=== PATIENT | female | born 1980 | race Caucasian/White ===

== ENCOUNTER 2021-05-12 14:33 | Observation (INO) ==
--- NOTE | 2021-05-12 15:42 | Emergency Department Note ---
History of Present Illness General Chief complaint: Abdominal Pain Stated complaint: POSSIBLE APPENDICITIS Time Seen by Provider: 05/12/21 15:34 History of Present Illness Maximum Pain Intensity: 6 This is a 41-year-old female that presents to the emergency department via private vehicle with complaints of "right lower quadrant abdominal pain". The patient states that this past Sunday evening she began with right lower quadrant abdominal pain. No known trauma or injury. No associated fevers, chills, nausea, vomiting, chest pain, shortness of breath or dysuria. Patient points to the right lower quadrant as a distinct spot of pain. She states that pain currently is a 6-7/10. She does note a history of partial hysterectomy and no longer has a uterus or fallopian tubes. The bilateral ovaries are present. Patient also notes a history of hemorrhoidectomy. Patient notes the appendix is still present. She notes a history of eczema and anxiety. No allergies. Patient perspective declines pain medication at this time. Patient states that if she stays in one spot the pain is slightly better. Home Medications Medication Instructions Recorded Confirmed Type escitalopram oxalate 20 mg tablet 20 mg PO QAM 03/13/19 05/12/21 History (Lexapro) Allergies Allergy/AdvReac Type Severity Reaction Status Date / Time allopurinol AdvReac Severe Nausea Verified 05/12/21 17:20 Past Med/Surg History Medical History Anxiety Chronic headache Dyshidrotic eczema B/L hands Endometriosis Kidney stones no surgery Medical marijuana use Obesity BMI 36.6 Surgical History History of section History of colonoscopy History of dental surgery dental implant History of laparoscopy endometriosis History of partial hysterectomy S/P hemorrhoidectomy Family History Mother Hypertension Other No family history of adverse response to anesthesia Social History Smoking Status: Never smoker Second Hand Exposure: No; Do You Dip or Chew Tobacco: No; Tobacco Cessation Education Requested by Patient: No Hx Alcohol Use: Yes Alcohol type: beer, wine and hard liquor Hx Substance Use: No Preferred Language: Lao Communication Ability: Effective Environmental Advisor Required: No Beliefs That Will Affect Care: None marital status: Single Current Living Situation: Family Current Living Situation Comment: Lives with Son and Parents. Other Information That Helps Us Care for You: No Feels Safe at Home: Yes Safety Concerns: Feels Safe At This Time Assistive Devices: None Review of Systems A total of 10 systems reviewed and were otherwise negative Physical Exam Vital Signs Vital Signs - 24 hr 05/12/21 14:46 05/12/21 16:30 05/12/21 17:06 Temperature 36.9 C Temperature Source Oral Pulse Rate 98 H Pulse Rate [Finger] 88 88 Pulse Rhythm [Finger] Regular Regular Pulse Strength [Finger] Respiratory Rate 18 18 18 Respiratory Effort / Characteristics Non-Labored Spontaneous Non-Labored Spontaneous Respiratory Depth Normal Normal Respiratory Pattern Regular Regular Blood Pressure 206/127 H Blood Pressure [Right Arm] 184/90 H 151/111 H Blood Pressure Mean 153 Blood Pressure Mean [Right Arm] 121 124 Blood Pressure Position [Right Arm] Sitting Sitting Pulse Oximetry 96 98 98 Oxygen Delivery Method Room Air Room Air Room Air Sepsis Recent Fever Within 48 Hours No Sepsis New/Unexplained Change in Mental Status No Sepsis Action Taken by Nursing No Action Required 05/12/21 18:36 05/12/21 19:54 Temperature Temperature Source Pulse Rate 88 Pulse Rate [Finger] 81 Pulse Rhythm [Finger] Regular Pulse Strength [Finger] Normal Respiratory Rate 18 18 Respiratory Effort / Characteristics Non-Labored Respiratory Depth Normal Respiratory Pattern Regular Blood Pressure Blood Pressure [Right Arm] 168/105 H Blood Pressure Mean Blood Pressure Mean [Right Arm] 126 Blood Pressure Position [Right Arm] Pulse Oximetry 95 98 Oxygen Delivery Method Room Air Room Air Sepsis Recent Fever Within 48 Hours Sepsis New/Unexplained Change in Mental Status Sepsis Action Taken by Nursing VITAL SIGNS - Vital signs and nursing notes were reviewed. Stable and afebrile. GENERAL -41-year-old female appearing her stated age who is in no acute distress . Communicates well with provider and answers questions appropriately. SKIN - Without rashes. No meningeal or petechial rash. HEAD - NC/AT. EYES - Sclera anicteric. LUNGS - Chest wall symmetric without accessory muscle use, intercostals retractions, or central cyanosis. Normal vesicular breath sounds CTA B/L. No wheezes, rales, or rhonchi appreciated. CARDIAC - RRR with S1/S2. No murmur, rubs, or gallops appreciated. ABDOMEN - Abdominal contour normal without pulsations or visible masses. BS normoactive all four quadrants. There is right lower quadrant abdominal tenderness to palpation. No palpable masses, hepatosplenomegaly, or ascites noted. EXTREMITIES - No clubbing or peripheral cyanosis. +5/5 strength noted in UE/LE bilaterally. NEUROLOGIC - Cranial nerves II through XII grossly intact. PSYCH - A&O, and cooperates fully with examiner. Pt is very pleasant and interacts well with examiner. Course Administered Medications Lactated Ringer's (Lr) 1,000 mls @ 50 mls/hr IV .Q20H ANKUR Stop: 06/11/21 22:22 Last Admin: 05/12/21 22:23 Dose: 50 mls/hr Documented by: [id number] Morphine Sulfate (Morphine Sulfate 2 Mg/Ml Carp) 2 mg IV Q3H PRN PRN Reason: Pain (1,2,3,4,5) & Pre PT Stop: 05/26/21 22:22 Last Admin: 05/12/21 23:06 Dose: 2 mg Documented by: [id number] Discontinued Medications Bupivacaine HCl (Bupivacaine 0.5 % 5 Mg/1 Ml Mpf 30ml Vial) Confirm Administered Dose 30 ml .ROUTE .STK-MED ONE Stop: 05/12/21 19:53 Last Admin: 05/12/21 21:01 Dose: 15 ml Documented by: [id number] Epinephrine HCl (Epinephrine Inj 1 Mg/Ml Amp) Confirm Administered Dose 1 mg .ROUTE .STK-MED ONE Stop: 05/12/21 19:53 Last Admin: 05/12/21 21:02 Dose: 0.15 mg Documented by: [id number] Fentanyl Citrate (Fentanyl Citrate 100 Mcg/2 Ml Vial) 50 mcg IV Q5M PRN PRN Reason: PACU Use Only-Pain Stop: 05/13/21 04:38 Last Admin: 05/12/21 21:40 Dose: 50 mcg Documented by: [id number] Piperacillin Sod/Tazobactam Sod (Zosyn) 4.5 gm in 120 mls @ 240 mls/hr IV NOW ONE Stop: 05/12/21 19:20 Last Infusion: 05/12/21 19:51 Dose: 0 mls/hr Documented by: [id number] Admin: 05/12/21 19:06 Dose: 240 mls/hr Documented by: [id number] Ioversol (Optiray 320 100ml) 95 ml IV ONCE ONE Stop: 05/12/21 17:57 Last Admin: 05/12/21 17:56 Dose: 95 ml Documented by: [id number] Labetalol HCl (Labetalol Hcl Iv 5 Mg/Ml 20ml) 10 mg IV NOW STA Stop: 05/12/21 21:33 Last Admin: 05/12/21 21:43 Dose: 10 mg Documented by: [id number] Cosigned by: [id number] Medical Decision Making Laboratory Data Result diagrams: 05/12/21 16:29 05/12/21 16:29 Lab Results 05/12/21 05/12/21 05/12/21 Range/Units 16:29 16:29 16:29 WBC 9.28 (4.8-10.8) K/uL RBC 5.12 (4.2-5.4) M/uL Hgb 15.2 (12.0-16.0) g/dL Hct 45.1 (37-47) % MCV 88.1 (80-100) fL MCH 29.7 (25-34) pg MCHC 33.7 (32-36) g/dL RDW Std Deviation 42.9 (36.4-46.3) fL RDW Coeff of Bibi 13.2 (11.5-14.5) % Plt Count 368 (130-400) K/uL MPV 9.1 (7.4-10.4) fL Immature Gran % (Auto) 0.2 % Neut % (Auto) 62.1 % Lymph % (Auto) 27.9 % Shelby % (Auto) 8.5 % Eos % (Auto) 1.1 % Baso % (Auto) 0.2 % Neut # (Auto) 5.76 (1.4-6.5) K/uL Lymph # (Auto) 2.59 (1.2-3.4) K/uL Shelby # (Auto) 0.79 H (0.11-0.59) K/uL Eos # (Auto) 0.10 (0-0.5) K/uL Baso # (Auto) 0.02 (0-0.2) K/uL Immature Gran # (Auto) 0.02 (0.00-0.02) K/uL Sodium 137 (136-145) mmol/L Potassium 3.4 L (3.5-5.1) mmol/L Chloride 104 (98-107) mmol/L Carbon Dioxide 28 (21-32) mmol/L Anion Gap 5.0 (3-11) BUN 13 (7-18) mg/dl Creatinine 0.82 (0.6-1.2) mg/dl Est Cr Clr Drug Dosing 99.1 ml/min Est GFR ( Amer) 103.0 ml/min Est GFR (Non-Af Amer) 88.9 ml/min BUN/Creatinine Ratio 15.5 (10-20) Glucose 104 H (70-99) mg/dl Calcium 9.5 (8.5-10.1) mg/dl Total Bilirubin 0.3 (0.2-1) mg/dl AST 9 L (15-37) U/L ALT 20 (12-78) U/L Alkaline Phosphatase 100 (45-117) U/L Total Protein 8.2 (6.4-8.2) gm/dl Albumin 3.6 (3.4-5.0) gm/dl Globulin 4.6 H (2.5-4.0) gm/dl Albumin/Globulin Ratio 0.8 L (0.9-2) Lipase 150 (73-393) U/L Urine Color Yellow Urine Appearance Clear (Clear) Urine pH 5.5 (4.5-7.5) Ur Specific Eland 1.028 (1.000-1.030) Urine Protein Negative (Negative) Urine Glucose (UA) Negative (Negative) Urine Ketones Negative (Negative) Urine Blood Trace H (Negative) Urine Nitrite Negative (Negative) Urine Bilirubin Negative (Negative) Urine Urobilinogen Negative (Negative) Ur Leukocyte Esterase Negative (Negative) Urine WBC (Auto) 1-5 (0-5) /hpf Urine RBC (Auto) 5-10 H (0-4) /hpf U Hyaline Cast (Auto) 5-10 H (0-5) /lpf U Epithel Cells (Auto) >30 H (0-5) /lpf Urine Bacteria (Auto) Negative (Negative) COVID-19 Eval Order SARS-CoV-2 (PCR) (Negative) 05/12/21 05/12/21 Range/Units 18:38 18:38 WBC (4.8-10.8) K/uL RBC (4.2-5.4) M/uL Hgb (12.0-16.0) g/dL Hct (37-47) % MCV (80-100) fL MCH (25-34) pg MCHC (32-36) g/dL RDW Std Deviation (36.4-46.3) fL RDW Coeff of Bibi (11.5-14.5) % Plt Count (130-400) K/uL MPV (7.4-10.4) fL Immature Gran % (Auto) % Neut % (Auto) % Lymph % (Auto) % Shelby % (Auto) % Eos % (Auto) % Baso % (Auto) % Neut # (Auto) (1.4-6.5) K/uL Lymph # (Auto) (1.2-3.4) K/uL Shelby # (Auto) (0.11-0.59) K/uL Eos # (Auto) (0-0.5) K/uL Baso # (Auto) (0-0.2) K/uL Immature Gran # (Auto) (0.00-0.02) K/uL Sodium (136-145) mmol/L Potassium (3.5-5.1) mmol/L Chloride (98-107) mmol/L Carbon Dioxide (21-32) mmol/L Anion Gap (3-11) BUN (7-18) mg/dl Creatinine (0.6-1.2) mg/dl Est Cr Clr Drug Dosing ml/min Est GFR ( Amer) ml/min Est GFR (Non-Af Amer) ml/min BUN/Creatinine Ratio (10-20) Glucose (70-99) mg/dl Calcium (8.5-10.1) mg/dl Total Bilirubin (0.2-1) mg/dl AST (15-37) U/L ALT (12-78) U/L Alkaline Phosphatase (45-117) U/L Total Protein (6.4-8.2) gm/dl Albumin (3.4-5.0) gm/dl Globulin (2.5-4.0) gm/dl Albumin/Globulin Ratio (0.9-2) Lipase (73-393) U/L Urine Color Urine Appearance (Clear) Urine pH (4.5-7.5) Ur Specific Eland (1.000-1.030) Urine Protein (Negative) Urine Glucose (UA) (Negative) Urine Ketones (Negative) Urine Blood (Negative) Urine Nitrite (Negative) Urine Bilirubin (Negative) Urine Urobilinogen (Negative) Ur Leukocyte Esterase (Negative) Urine WBC (Auto) (0-5) /hpf Urine RBC (Auto) (0-4) /hpf U Hyaline Cast (Auto) (0-5) /lpf U Epithel Cells (Auto) (0-5) /lpf Urine Bacteria (Auto) (Negative) COVID-19 Eval Order Covid19 at [facility] SARS-CoV-2 (PCR) NEGATIVE (Negative) Imaging Data Radiologist's Impression: Abdomen/Pelvis CT 05/12/21 15:[address] WITH IV CONTRAST CT DOSE: 903.27 mGy.cm HISTORY: Right lower quadrant abdominal pain. TECHNIQUE: Multiaxial CT images of the abdomen and pelvis were performed following the use of intravenous contrast. A dose lowering technique was uti lized adhering to the principles of ALARA. COMPARISON STUDY: Abdomen and pelvis CT 05/11/2021. FINDINGS: The lung bases are clear. No pneumoperitoneum. No pneumatosis. No fractures within the visualized osseous structures. Mild hepatic steatosis. The main portal vein is patent. The gallbladder, spleen, adrenal glands, and pancreas are unremarkable. A 1 cm hypodense lesion within the left kidney. This remains stable and likely represents a cyst. There are few punctate bilateral renal calculi. No ureteral calculi. No hydronephrosis. The bladder is unremarkable. Mild bilateral cortical renal scarring/thinning. No retroperitoneal lymphadenopathy. Normal caliber abdominal aorta. Prior hysterectomy. A 1.6 cm right ovarian cyst. Normal left ovary. A few colonic diverticula. No evidence for acute diverticulitis. No evidence for small bowel obstruction. Dilated and thick-walled appendix with periappendiceal fat stranding consistent with acute appendicitis. No perforation or abscess. The appendix measures up to 13 mm in diameter. IMPRESSION: 1. Acute appendicitis. 2. Bilateral nephrolithiasis. No ureteral stones. No hydronephrosis. 3. Colonic diverticulosis. 4. Hepatic steatosis. ACT 112: Negative or not required by law. Electronically signed by: Arnav Valero M.D. 05/12/2021 6:22 PM MDM Narrative Patient was seen and evaluated as above in room A12. Review was performed of nursing notes and vital signs. I did review pertinent previous visits and patient history. After obtaining a thorough history and physical examination the above work up was performed. I did review the patient's urology visit from earlier today. She was evaluate by Dr. Hanley. Patient does have history of kidney stones but notes that this does not feel similar. She is quite hy pertensive on arrival but notes that this may be secondary to the blood pressure cuff as often it does provide higher values depending on cuff size. She at this time notes some right lower quadrant abdominal pain. She respectfully declines pain medication. Clinically she appears well. Options of care were discussed with the patient. IV access was established. Labs were drawn. CT scan was obtained of the abdomen and pelvis. Results as above. Acute appendicitis noted. I discussed this with the on-call general surgeon, Dr. Rodgers. IV antibiotics recommended. IV Zosyn was ordered per d iscussion. He came to evaluate the patient. Please refer to further documentation regarding her stay. No leukocytosis or concerning anemia. Mild hypokalemia. Urinalysis negative. Covid negative. GCS: 15 In the evaluation and treatment of this patient the following differential diagnoses were entertained: uti, pyelonephritis, appendicitis, bowel obstruction, torsion, kidney stone, among others. Impression & Plan Acute appendicitis, Abdominal pain, acute, right lower quadrant Discharge Plan Visit Data Chief Complaint: Abdominal Pain Stated Complaint: POSSIBLE APPENDICITIS ED Provider: Catrachito Gamez ED Midlevel Provider: Christiano Vásquez Discharge Problem: Acute appendicitis, Abdominal pain, acute, right lower quadrant Patient Disposition: Still a Patient Condition: Good Discharge Instructions Interventions: ED Discharge Assessment Last Done: 05/12/21 19:54
[2021-05-12 16:42] LABS: Basophils # (auto) 0.02 K/uL (0-0.2); Basophils % (auto) 0.2 %; Eosinophils % (auto) 1.1 %; Hematocrit (blood only) 45.1 % (37-47); Hemoglobin 15.2 g/dL (12.0-16.0); Immature Granulocytes # (auto) 0.02 K/uL (0.00-0.02); Immature Granulocytes % (auto) 0.2 %; Lymphocytes # (auto) 2.59 K/uL (1.2-3.4); Lymphocytes % (auto) 27.9 %; Mean Corpuscular Hemoglobin 29.7 pg (25-34); Mean Corpuscular Hgb Conc 33.7 g/dL (32-36); Mean Corpuscular Volume 88.1 fL (80-100); Mean Platelet Volume 9.1 fL (7.4-10.4); Monocytes # (auto) 0.79 K/uL (0.11-0.59); Monocytes % (auto) 8.5 %; Neutrophils # (auto) 5.76 K/uL (1.4-6.5); Neutrophils % (auto) 62.1 %; Platelet Count 368 K/uL (130-400); RDW Coefficient of Variation 13.2 % (11.5-14.5); RDW Standard Deviation 42.9 fL (36.4-46.3); Red Blood Count 5.12 M/uL (4.2-5.4); White Blood Count 9.28 K/uL (4.8-10.8)
[2021-05-12 16:59] LABS: Appearance Urine Clear (Clear); Bacteria Urine Automated Negative (Negative); Bilirubin Urine Negative (Negative); Blood Urine Trace (Negative); Color Urine Yellow; Epithelial Cell Urine Auto >30 /lpf (0-5); Glucose Urine UA Negative (Negative); Ketones Urine Negative (Negative); Leukocyte Esterase Urine Negative (Negative); Nitrite Urine Negative (Negative); Protein Urine Negative (Negative); Specific Gravity Urine 1.028 (1.000-1.030); Urobilinogen Urine Negative (Negative); pH Urine 5.5 (4.5-7.5)
[2021-05-12 17:03] LABS: Albumin Level 3.6 gm/dl (3.4-5.0); BUN Creatinine Ratio 15.5 (10-20); Calcium 9.5 mg/dl (8.5-10.1); Creatinine Clr Calc Pharmacy 99.1 ml/min; Est GFR (Non-African American) 88.9 ml/min; Potassium 3.4 mmol/L (3.5-5.1)
[2021-05-12 17:06] LABS: Albumin Globulin Ratio 0.8 (0.9-2); Bilirubin,Total 0.3 mg/dl (0.2-1); Globulin 4.6 gm/dl (2.5-4.0); Total Protein 8.2 gm/dl (6.4-8.2)
[2021-05-12] MEDS ORDERED: OPTIRAY 320 100ml IV ONE (17:56)
--- NOTE | 2021-05-12 18:23 | CT Scan Report ---
ABDOMEN AND PELVIS CT WITH IV CONTRAST CT DOSE: 903.27 mGy.cm HISTORY: Right lower quadrant abdominal pain. TECHNIQUE: Multiaxial CT images of the abdomen and pelvis were performed following the use of intrave nous contrast. A dose lowering technique was utilized adhering to the principles of ALARA. COMPARISON STUDY: Abdomen and pelvis CT 05/11/2021. FINDINGS: The lung bases are clear. No pneumoperitoneum. No pneumatosis. No fractures within the visu alized osseous structures. Mild hepatic steatosis. The main portal vein is patent. The gallbladder, s pleen, adrenal glands, and pancreas are unremarkable. A 1 cm hypodense lesion within the left kidney. This remains stable and likely represents a cyst. There are few punctate bilateral renal calculi. No ureteral calculi. No hydronephrosis. The bladder is unremarkable. Mild bilateral cortical renal scar ring/thinning. No retroperitoneal lymphadenopathy. Normal caliber abdominal aorta. Prior hysterectomy . A 1.6 cm right ovarian cyst. Normal left ovary. A few colonic diverticula. No evidence for acute di verticulitis. No evidence for small bowel obstruction. Dilated and thick-walled appendix with periapp endiceal fat stranding consistent with acute appendicitis. No perforation or abscess. The appendix me asures up to 13 mm in diameter. IMPRESSION: 1. Acute appendicitis. 2. Bilateral nephrolithiasis. No ureteral stones. No hydronephrosis. 3. Colonic diverticulosis. 4. Hepatic steatosis. ACT 112: Negative or not required by law. Electronically signed by: Arnav Valero M.D. 05/12/2021 6:22 PM
[2021-05-12] MEDS ORDERED: PIPERACILL/TAZOBAC CONSULT ACTIVE PRN (18:51)
[2021-05-12] MEDS ORDERED: PIPERACILLIN/TAZOBACTAM 4.5 GM/120 ML BAG IV ONE (18:51)
--- NOTE | 2021-05-12 19:29 | History & Physical Report ---
Date of Service May 12, 2021 Assessment & Plan (1) Acute appendicitis with localized peritonitis: Plan: 41-year-old woman presents with acute appendicitis. I discussed with her the risks, benefits, and outcomes of laparoscopic appendectomy. The risks include but are not limited to: Bleeding, infection, leak, obstruction, injury to surrounding structures, need for further procedures, need for open procedure. We also discussed the recovery period. All her questions were answered, and she is agreeable to proceed. She has received a dose of Zosyn 3.375 g IV x1. I placed her on IV fluids. We will take her to the operating room at the earliest convenience for laparoscopic, possible open appendectomy. Admission and Anticipated Discharge Date Admission Date: 05/12/2021 History of Present Illness Primary Care Provider: Jeremias Girard 41-year-old woman presents with right-sided abdominal pain which began on Sunday. It was radiating around to her right back. She thought it was a manifestation of her kidney stones. The pain was sharp and stabbing in character. Over the course of the day it radiated down to the right lower quadrant. She denies nausea or vomiting. She denies fevers and chills. She denies diarrhea or constipation. She was eating normally and last ate at 1 PM. The pain has progressively worsened since it started. She denies radiation of her pain to her back currently. Allergies Allergy/AdvReac Type Severity Reaction Status Date / Time allopurinol AdvReac Severe Nausea Verified 05/12/21 17:20 Home Medications Medication Instructions Recorded Confirmed Type escitalopram oxalate 20 mg tablet 20 mg PO QAM 03/13/19 05/12/21 History (Lexapro) Past Med/Surg History Medical History Anxiety Chronic headache Dyshidrotic eczema B/L hands Endometriosis Kidney stones no surgery Medical marijuana use Obesity BMI 36.6 Surgical History History of section History of colonoscopy History of dental surgery dental implant History of laparoscopy endometriosis History of partial hysterectomy S/P hemorrhoidectomy Family History Mother Hypertension Other No family history of adverse response to anesthesia Social History Smoking Status: Never smoker Second Hand Exposure: Yes (in childhood); Hx Alcohol Use: Yes Alcohol type: beer, wine and hard liquor Hx Substance Use: Yes (medical marijuana) Preferred Language: Maori Communication Ability: Effective Quarter Lining Smoother Required: No Beliefs That Will Affect Care: None marital status: Single Current Living Situation: Parent and Family Current Living Situation Comment: Lives with parents and son Feels Safe at Home: Yes Assistive Devices: None Review of Systems Review of Systems: All systems reviewed & are unremarkable except as noted in HPI & below Physical Exam Constitutional: WD/WN, vitals as above Eyes: PERRL, conjunctivae normal, anicteric sclerae Neck: trachea midline, no thyromegaly Respiratory: normal respiratory effort; no respiratory distress and no labored breathing Cardiovascular: Rate/Rhythm: regular rate and regular rhythm Gastrointestinal (Abdomen): Inspection/Auscultation: abdomen normal to inspection; abdomen not distended Percussion/Palpation: + abdomen tender (Right lower/right upper quadrant) and abdomen soft; no guarding and abdomen not rigid Musculoskeletal: Extremities: no cyanosis and no clubbing Skin: no rashes, warm and dry Psychiatric: A+Ox3, euthymic affect Results & Data Results & Data ([facility]) Vital Signs (Past 12 Hours) Vital Signs Temp Pulse Pulse Resp BP BP Pulse Ox 05/12/21 18:36 81 18 168/105 H 95 05/12/21 17:06 88 18 151/111 H 98 05/12/21 16:30 88 18 184/90 H 98 05/12/21 14:46 36.9 C 98 H 18 206/127 H 96 Laboratory Results 05/12/21 05/12/21 05/12/21 Range/Units 18:38 18:38 16:29 WBC (4.8-10.8) K/uL RBC (4.2-5.4) M/uL Hgb (12.0-16.0) g/dL Hct (37-47) % MCV (80-100) fL MCH (25-34) pg MCHC (32-36) g/dL RDW Std Deviation (36.4-46.3) fL RDW Coeff of Bibi (11.5-14.5) % Plt Count (130-400) K/uL MPV (7.4-10.4) fL Immature Gran % (Auto) % Neut % (Auto) % Lymph % (Auto) % [place] % (Auto) % Eos % (Auto) % Baso % (Auto) % Neut # (Auto) (1.4-6.5) K/uL Lymph # (Auto) (1.2-3.4) K/uL [place] # (Auto) (0.11-0.59) K/uL Eos # (Auto) (0-0.5) K/uL Baso # (Auto) (0-0.2) K/uL Immature Gran # (Auto) (0.00-0.02) K/uL Sodium (136-145) mmol/L Potassium (3.5-5.1) mmol/L Chloride (98-107) mmol/L Carbon Dioxide (21-32) mmol/L Anion Gap (3-11) BUN (7-18) mg/dl Creatinine (0.6-1.2) mg/dl Est Cr Clr Drug Dosing ml/min Est GFR ( Amer) ml/min Est GFR (Non-Af Amer) ml/min BUN/Creatinine Ratio (10-20) Glucose (70-99) mg/dl Calcium (8.5-10.1) mg/dl Total Bilirubin (0.2-1) mg/dl AST (15-37) U/L ALT (12-78) U/L Alkaline Phosphatase (45-117) U/L Total Protein (6.4-8.2) gm/dl Albumin (3.4-5.0) gm/dl Globulin (2.5-4.0) gm/dl Albumin/Globulin Ratio (0.9-2) Lipase (73-393) U/L Urine Color Yellow Urine Appearance Clear (Clear) Urine pH 5.5 (4.5-7.5) Ur Specific [place] 1.028 (1.000-1.030) Urine Protein Negative (Negative) Urine Glucose (UA) Negative (Negative) Urine Ketones Negative (Negative) Urine Blood Trace H (Negative) Urine Nitrite Negative (Negative) Urine Bilirubin Negative (Negative) Urine Urobilinogen Negative (Negative) Ur Leukocyte Esterase Negative (Negative) Urine WBC (Auto) 1-5 (0-5) /hpf Urine RBC (Auto) 5-10 H (0-4) /hpf U Hyaline Cast (Auto) 5-10 H (0-5) /lpf U Epithel Cells (Auto) >30 H (0-5) /lpf Urine Bacteria (Auto) Negative (Negative) COVID-19 Eval Order Covid19 at [facility] SARS-CoV-2 (PCR) Pending 05/12/21 05/12/21 Range/Units 16:29 16:29 WBC 9.28 (4.8-10.8) K/uL RBC 5.12 (4.2-5.4) M/uL Hgb 15.2 (12.0-16.0) g/dL Hct 45.1 (37-47) % MCV 88.1 (80-100) fL MCH 29.7 (25-34) pg MCHC 33.7 (32-36) g/dL RDW Std Deviation 42.9 (36.4-46.3) fL RDW Coeff of Bibi 13.2 (11.5-14.5) % Plt Count 368 (130-400) K/uL MPV 9.1 (7.4-10.4) fL Immature Gran % (Auto) 0.2 % Neut % (Auto) 62.1 % Lymph % (Auto) 27.9 % [place] % (Auto) 8.5 % Eos % (Auto) 1.1 % Baso % (Auto) 0.2 % Neut # (Auto) 5.76 (1.4-6.5) K/uL Lymph # (Auto) 2.59 (1.2-3.4) K/uL [place] # (Auto) 0.79 H (0.11-0.59) K/uL Eos # (Auto) 0.10 (0-0.5) K/uL Baso # (Auto) 0.02 (0-0.2) K/uL Immature Gran # (Auto) 0.02 (0.00-0.02) K/uL Sodium 137 (136-145) mmol/L Potassium 3.4 L (3.5-5.1) mmol/L Chloride 104 (98-107) mmol/L Carbon Dioxide 28 (21-32) mmol/L Anion Gap 5.0 (3-11) BUN 13 (7-18) mg/dl Creatinine 0.82 (0.6-1.2) mg/dl Est Cr Clr Drug Dosing 99.1 ml/min Est GFR ( Amer) 103.0 ml/min Est GFR (Non-Af Amer) 88.9 ml/min BUN/Creatinine Ratio 15.5 (10-20) Glucose 104 H (70-99) mg/dl Calcium 9.5 (8.5-10.1) mg/dl Total Bilirubin 0.3 (0.2-1) mg/dl AST 9 L (15-37) U/L ALT 20 (12-78) U/L Alkaline Phosphatase 100 (45-117) U/L Total Protein 8.2 (6.4-8.2) gm/dl Albumin 3.6 (3.4-5.0) gm/dl Globulin 4.6 H (2.5-4.0) gm/dl Albumin/Globulin Ratio 0.8 L (0.9-2) Lipase 150 (73-393) U/L Urine Color Urine Appearance (Clear) Urine pH (4.5-7.5) Ur Specific [place] (1.000-1.030) Urine Protein (Negative) Urine Glucose (UA) (Negative) Urine Ketones (Negative) Urine Blood (Negative) Urine Nitrite (Negative) Urine Bilirubin (Negative) Urine Urobilinogen (Negative) Ur Leukocyte Esterase (Negative) Urine WBC (Auto) (0-5) /hpf Urine RBC (Auto) (0-4) /hpf U Hyaline Cast (Auto) (0-5) /lpf U Epithel Cells (Auto) (0-5) /lpf Urine Bacteria (Auto) (Negative) COVID-19 Eval Order SARS-CoV-2 (PCR) Diagnostic Findings ABDOMEN AND PELVIS CT WITH IV CONTRAST CT DOSE: 903.27 mGy.cm HISTORY: Right lower quadrant abdominal pain. TECHNIQUE: Multiaxial CT images of the abdomen and pelvis were performed following the use of intravenous contrast. A dose lowering technique was utilized adhering to the principles of ALARA. COMPARISON STUDY: Abdomen and pelvis CT 05/11/2021. FINDINGS: The lung bases are clear. No pneumoperitoneum. No pneumatosis. No fractures within the visualized osseous structures. Mild hepatic steatosis. The main portal vein is patent. The gallbladder, spleen, adrenal glands, and pancreas are unremarkable. A 1 cm hypodense lesion within the left kidney. This remains stable and likely represents a cyst. There are few punctate bilateral renal calculi. No ureteral calculi. No hydronephrosis. The bladder is unremarkable. Mild bilateral cortical renal scarring/thinning. No retroperitoneal lymphadenopathy. Normal caliber abdominal aorta. Prior hysterectomy. A 1.6 cm right ovarian cyst. Normal left ovary. A few colonic diverticula. No evidence for acute diverticulitis. No evidence for small bowel obstruction. Dilated and thick-walled appendix with periappendiceal fat stranding consistent with acute appendicitis. No perforation or abscess. The appendix measures up to 13 mm in diameter. IMPRESSION: 1. Acute appendicitis. 2. Bilateral nephrolithiasis. No ureteral stones. No hydronephrosis. 3. Colonic diverticulosis. 4. Hepatic steatosis.
[2021-05-12] MEDS ORDERED: BUPIVACAINE 0.5 % 5 MG/1 ML MPF 30ML VIAL ONE (19:52)
[2021-05-12] MEDS ORDERED: EPINEPHrine INJ 1 MG/ML AMP ONE (19:52)
[2021-05-12] MEDS ORDERED: PROPOFOL IV EMULSION 10 MG/ML 20 ML VIAL IV ONE (20:00)
[2021-05-12] MEDS ORDERED: LIDOCAINE 2% 2 ML VIAL/AMP(20MG/ML) INFIL ONE (20:00)
[2021-05-12] MEDS ORDERED: fentaNYL citrate 100 MCG/2 ML VIAL ONE ×2 (20:01)
--- NOTE | 2021-05-12 20:09 | Anesthesiology Consultation ---
Date of Service May 12, 2021 Assessment & Plan (1) Encounter for pre-operative examination: Chart Review Chart Review: Acceptable Risk for Surgery Consults Requested none ASA [id number] Proposed Anesthesia Anesthesia Type: General Risk / Benefits Reviewed With: PT / POA / Parent / Guardian, Accepts Plan and Informed Consent Obtained History Surgery Operation Date: 05/12/21 20:30 Proposed Procedures p Laparoscopic Appendectomy(Not Applicable) - Justo Rodgers MD Height/Weight Height: 5 ft 2 in Weight: 98.6 kg Allergies Allergy/AdvReac Type Severity Reaction Status Date / Time allopurinol AdvReac Severe Nausea Verified 05/12/21 17:20 Medications Home Medications Medication Instructions Recorded Confirmed Last Taken escitalopram oxalate 20 mg tablet 20 mg PO QAM 03/13/19 05/12/21 05/12/21 (Lexapro) NPO Date Last Intake of Fluids: 05/12/21 Time Last Intake of Fluids: 13:00 Date Last Intake of Solids: 05/12/21 Time Last Intake of Solids: 13:00 Past Medical History Medical History Anxiety Chronic headache Dyshidrotic eczema B/L hands Endometriosis Kidney stones no surgery Medical marijuana use Obesity BMI 36.6 Exercise / Class Metabolic Activity II 4-5 Yardwork/Stairs/Walk up hill Past Family History Family History Mother Hypertension Other No family history of adverse response to anesthesia Past Surgical History Surgical History History of section History of colonoscopy History of dental surgery dental implant History of laparoscopy endometriosis History of partial hysterectomy S/P hemorrhoidectomy Past Anesthesia History No Hx of Anesthesia Complications and No Family Hx of Anesthesia Complications History of PONV No Hx of PONV and No Hx of Motion Sickness Social History Smoking Status: Never smoker Hx Alcohol Use: Yes Alcohol type: beer, wine and hard liquor alcohol intake frequency: a few times a month Hx Substance Use: Yes (medical marijuana) substance use type: marijuana Physical Exam Vital Signs Last Vital Signs Temp 98.4 F 05/12/21 14:46 Pulse 88 05/12/21 19:54 Resp 18 05/12/21 19:54 BP 168/105 H 05/12/21 18:36 Pulse Ox 98 05/12/21 19:54 ENMT Mouth: no dentition abnormality Thyromental Distance: > or= 3.5 Finger Breadths Mallampati Class: II Neck normal visual inspection Respiratory normal respiratory effort Auscultation: lungs clear to auscultation bilaterally Cardiovascular Rate/Rhythm: regular rate and regular rhythm Testing Laboratory Results 05/12/21 16:29 05/12/21 16:29 Urine Color Yellow 05/12/21 16: Urine Appearance Clear (Clear) 05/12/21 16: Urine pH 5.5 (4.5-7.5) 05/12/21 16:29 Ur Specific [place] 1.028 (1.000-1.030) 05/12/21 16: Urine Protein Negative (Negative) 05/12/21 16: Urine Glucose (UA) Negative (Negative) 05/12/21 16: Urine Ketones Negative (Negative) 05/12/21 16: Urine Nitrite Negative (Negative) 05/12/21 16:29 Ur Leukocyte Esterase Negative (Negative) 05/12/21 16:29 Urine WBC (Auto) 1-5 /hpf (0-5) 05/12/21 16:29 Urine RBC (Auto) 5-10 /hpf (0-4) H 05/12/21 16: U Hyaline Cast (Auto) 5-10 /lpf (0-5) H 05/12/21 16:29 U Epithel Cells (Auto) >30 /lpf (0-5) H 05/12/21 16:29 Urine Bacteria (Auto) Negative (Negative) 05/12/21 16:29
[2021-05-12] MEDS ORDERED: ONDANSETRON INJ 2 MG/ML 2 ML VIAL IV PRN ×2 (20:38→22:23)
[2021-05-12] MEDS ORDERED: ONDANSETRON INJ 2 MG/ML 2 ML VIAL ONE (20:38)
[2021-05-12] MEDS ORDERED: fentaNYL citrate 100 MCG/2 ML VIAL IV PRN (20:38)
[2021-05-12] MEDS ORDERED: SUCCINYLCHOLINE CHLORIDE 20 MG/ML 10 ML VIAL IV ONE (20:38)
[2021-05-12] MEDS ORDERED: ePHEDrine sulfate 50 MG/ML AMP IV PRN (20:38)
[2021-05-12] MEDS ORDERED: ATROPINE SULFATE 0.1 MG/ML 10ML SYR IV PRN (20:38)
[2021-05-12] MEDS ORDERED: GLYCOPYRROLATE 0.2 MG/ML VIAL ONE (20:57)
--- NOTE | 2021-05-12 21:08 | Operative Report ---
Post Operative Report Pre & Post Diagnosis Operation Date: 05/12/21 20:30 Pre-Op Diagnosis: Acute appendicitis with localized peritonitis Post-Op Diagnosis: Acute appendicitis with localized peritonitis I identified the patient and participated in the time-out.: Yes Procedure Operation Date: 05/12/21 20:30 Actual Procedures p Laparoscopic Appendectomy(Not Applicable) - Justo Rodgers MD Surgeon Justo Rodgers MD [employer] None Estimated Blood Loss 5 Findings Consistent with Post-Op Diagnosis Acute appendicitis Specimens Appendix Anesthesia Type General Indications Acute appendicitis Description of Procedure The patient was taken to the operating room, and placed supine on the operating table. A timeout was performed, perioperative antibiotics were administered, SCD boots were placed. After adequate anesthesia and analgesia was obtained, the abdomen was prepped and draped in the normal sterile fashion. A 1 cm incision was made in the supraumbilical region and carried down to the level of the fascia. A trach hook was used to grasp the fascia and elevated and a varies needle was used to enter the abdominal cavity. The abdomen was insufflated to a pressure of 15 mmHg, and a 5 mm trocar was placed in this loca tion. A 5 mm 30 degree laparoscope was placed into the abdominal cavity, and the abdomen was surveyed. The patient was placed in Trendelenburg and slightly to the left. One 5 mm trocar was placed in the right upper quadrant, and one 12 mm trocar was placed in the left lower quadrant under direct visualization. There were some omental adhesions to the anterior abdominal wall that were taken down sharply with scissor dissection. The right colon was identified and traced down to the cecum. The appendix was identified and elevated anteriorly and medially. A window was created at the base of the appendix with a [place] dissector. The Endo EUGENIE stapler was used to transect the appendix at its base through noninflamed tissue, and subsequently the mesoappendix. The appendix was placed in an Endo Catch bag, and removed via the left lower quadrant port site. Attention was turned to hemostasis, which was excellent. The abdomen was copiously irrigated and suctioned free, and again hemostasis was found to be excellent. All trochars removed under direct visualization. The abdomen was desufflated. The fascia in the 12 mm port site was closed with a 0 Vicryl suture. The skin was closed with a running 4-0 Monocryl subcuticular stitch. Dermabond was applied. The patient tolerated the procedure without complication, and was transferred in stable condition to the PACU. All instrument, needle, and sponge counts were correct at the end of the case. I attest to the content of the Intraoperative Record and any orders documented therein. Any exceptions are noted below.
[2021-05-12] MEDS ORDERED: LABETALOL HCL IV 5 MG/ML 20ML IV ONE ×2 (21:23→21:24)
[2021-05-12] MEDS ORDERED: LABETALOL HCL IV 5 MG/ML 20ML IV STA (21:32)
--- NOTE | 2021-05-12 22:06 | Anesthesiology Progress Note ---
Date of Service May 12, 2021 Anesthesia Post Procedure Vital Signs Vital Signs: Temp Pulse Pulse Pulse Resp BP BP 05/12/21 22:00 77 12 139/91 05/12/21 21:55 98.4 F 82 12 162/95 H 05/12/21 21:45 85 12 156/115 H 05/12/21 21:35 75 13 155/100 H 05/12/21 21:25 91 H 13 171/108 H 05/12/21 21:16 98.4 F 104 H 18 199/142 H 05/12/21 19:54 88 18 05/12/21 18:36 81 18 168/105 H 05/12/21 17:06 88 18 151/111 H 05/12/21 16:30 88 18 184/90 H 05/12/21 14:46 98.4 F 98 H 18 206/127 H Pulse Ox 05/12/21 22:00 95 05/12/21 21:55 95 05/12/21 21:45 96 05/12/21 21:35 96 05/12/21 21:25 95 05/12/21 21:16 93 05/12/21 19:54 98 05/12/21 18:36 95 05/12/21 17:06 98 05/12/21 16:30 98 05/12/21 14:46 96 Pain Intensity Abdomen: Pain Intensity: 3 Transfer of Care Handoff Completed per policy Notes Mental Status: alert / awake / arousable and participated in evaluation Patient Amnestic to Procedure: Yes Nausea / Vomiting: adequately controlled Pain: adequately controlled Airway Patency, RR, SpO2: stable & adequate BP & HR: stable & adequate Hydration State: stable & adequate Anesthetic Complications: no major complications apparent and Pt Satisfied with anesthetic care
[2021-05-12] MEDS ORDERED: KETOROLAC 30 MG/ML VIAL IV PRN (22:23)
[2021-05-12] MEDS ORDERED: LACTATED RINGER'S 1,000 ML IV SCH (22:23)
[2021-05-12] MEDS ORDERED: PROMETHAZINE HCL 25 MG in SODIUM CHLORIDE 0.9% 50 ML IV PRN (22:23)
[2021-05-12] MEDS: MoRPHine SULFATE 2 MG/ML CARP IV PRN (23:06)
[2021-05-12] MEDS ORDERED: FLUARIX QUADRIVALENT 0.5 ML SYR IM ONE (23:19)
[2021-05-13 01:23] VITALS: TEMP 98.1
[2021-05-13 03:18] VITALS: O2SAT 94
[2021-05-13] MEDS: MoRPHine SULFATE 2 MG/ML CARP IV PRN (03:25)
[2021-05-13 06:34] VITALS: PULSE 89
[2021-05-13] MEDS: oxyCODONE/ACETAMINOPHEN 5mg/325mg TAB PO PRN ×2 (07:28→12:47)
[2021-05-13] MEDS ORDERED: ENOXAPARIN INJ 40 MG/0.4 ML SYR SQ SCH (09:00)
--- NOTE | 2021-05-13 09:21 | Discharge Summary ---
Date of Service May 13, 2021 Admission HPI Per Admitting Provider 41-year-old woman presents with right-sided abdominal pain which began on Sunday. It was radiating around to her right back. She thought it was a manifestation of her kidney stones. The pain was sharp and stabbing in character. Over the course of the day it radiated down to the right lower quadrant. She denies nausea or vomiting. She denies fevers and chills. She denies diarrhea or constipation. She was eating normally and last ate at 1 PM. The pain has progressively worsened since it started. She denies radiation of her pain to her back currently. Principal Diagnosis Acute appendicitis Discharge Exam Constitutional WD/WN, vitals as above Eyes PERRL, conjunctivae normal, anicteric sclerae Neck trachea midline, no thyromegaly Respiratory normal respiratory effort; no respiratory distress and no labored breathing Cardiovascular Rate/Rhythm: regular rate and regular rhythm Gastrointestinal (Abdomen) Inspection/Auscultation: abdomen normal to inspection and + abdominal surgical incision (Clean, dry, intact, no erythema, Dermabond present); abdomen not distended Percussion/Palpation: + abdomen tender (TTP at incisions) and abdomen soft; no guarding and abdomen not rigid Musculoskeletal Extremities: no cyanosis and no clubbing Skin no rashes, warm and dry Psychiatric A+Ox3, euthymic affect Discharge Data Allergies Allergy/AdvReac Type Severity Reaction Status Date / Time allopurinol AdvReac Severe Nausea Verified 05/12/21 17:20 Procedures Performed Operation Date: 05/12/21 20:30 Actual Procedures p Laparoscopic Appendectomy(Not Applicable) - Justo Rodgers MD Ordered Studies 05/12/21 15:39 CT abd pelvis IV con only Stat Hospital Course (1) Acute appendicitis with localized peritonitis: Patient was admitted through the emergency department and taken to the operating room for laparoscopic cholecystectomy, the details of which are dictated in a separate note. Postoperatively, patient was taken to the floor. Diet was advanced as tolerated. Pain was controlled with IV and oral pain medications. DVT prophylaxis with SCD boots and Lovenox. By the day of discharge, patient was tolerating regular diet, and was not requiring IV pain medications, and was discharged home in stable condition. Total Time Total Time Spent Total Time Spent (In Minutes): 30 minutes Discharge Plan Discharge Items Patient Disposition: Home - Self-Care Reason For Visit: ACUTE APPENDICITIS Discharge Diagnosis: Acute appendicitis Condition on Discharge: Good Activity: Per Instructions section Lifting: No more than 25 pounds Sexual Activity: Wait until after follow-up appointment Exercise/Sports: Wait until after follow-up appointment Driving/Machine Use: Resume 3 days after discharge Non-emergency contact: Surgeon Call non-emergency contact if: you have any medication questions, your symptoms worsen, your pain is not controlled, your pain is concerning for you, your temperature is above 101.5, your wound has increased redness and your wound has increased drainage Follow-up/Referrals: Jeremias Girard [Primary Care Provider] - Diet: Regular Addtl Attending Provider Instructions: Post-Surgical ~Discharge Instructions Activity Recommendations: - lifting limitation: (20 pounds for 2 weeks), - exercise/sex/sports limit: (nonstrenuous for 2 weeks), - driving or machine use limit: (none for 1 week), - Shower/bathe limit: (may shower beginning tomorrow) Diet: - Resume previous diet SPECIAL CARE INSTRUCTIONS: - May shower in 24 hours. Let water run over area and pat dry. - Leave Dermabond in place. - Call the surgeon's office with any questions or concerns - - (ex. temperature higher than 101 degrees F, excessive bleeding or pain). MEDICATIONS: - Resume previous medications unless instructed otherwise by your surgeon. - Ibuprofen 600 mg every 6 hours with food - Percocet 1 every 4 hours, as needed for pain FOLLOW UP VISIT: - If not already scheduled, please call the office to schedule a two week follow-up appointment. Office number Pending Studies at Discharge: No Stand-Alone Forms: [employer], Smoking Cessation Medications and DC Order Prescriptions: New oxycodone-acetaminophen [Percocet] 5-325 mg tablet 1 tab PO Q6H PRN (Reason: pain) Qty: 10 RF: 0 Continued escitalopram oxalate [Lexapro] 20 mg tablet 20 mg PO QAM RF: 0 Discharge Orders: Discharge Order (Routine); Ordered 05/13/21 Ordered By: Justo Rodgers Admission Data Admit Date/Time: 05/12/21 21:10 Attending Provider: Justo Rodgers Admit Provider: Justo Rodgers Primary Care Provider: Jeremias Girard
[2021-05-13 10:06] VITALS: BP 139/91
== END 2021-05-13 13:36 | disposition home or self-care (01) ==
LOC: ED 14:33 → ASU 19:54 → 3E 19:54

== ENCOUNTER 2025-04-17 09:11 | Inpatient (IN) ==
--- NOTE | 2025-04-17 11:01 | Emergency Department Note ---
Impression & Plan Ureteropelvic junction calculus, Hydronephrosis ED Provider Note CHIEF COMPLAINT: Flank pain HISTORY OF PRESENTING ILLNESS: The patient is a pleasant 45-year-old female who arrives to the emergency department for evaluation of severe left-sided flank pain that occurred at approximately 0730 this morning. She reports she has a known kidney stone and is to have lithotripsy performed on Sunday with Dr. Watson. She reports she was not in pain, until this morning. She reports no urination for the last few hours. She reports nausea, and vomiting without fever. She denies dysuria earlier this morning. REVIEW OF SYSTEMS: See HPI for pertinent positives and pertinent negatives. ALLERGIES: See below MEDICATIONS: See below PAST MEDICAL HISTORY: See below PHYSICAL EXAM: VITALS: Vitals are noted on the nurse's note and reviewed by myself. Vital signs stable. GENERAL: 45-year-old female, in visible discomfort, nondiaphoretic, well- developed well-nourished. SKIN: The skin was without rashes, erythema, edema, or bruising. HEART: Regular rate and rhythm without murmurs gallops or rubs. LUNGS: Clear to auscultation bilaterally without wheezes, rales or rhonchi. No retractions or accessory muscle use. ABDOMEN: Positive bowel sounds x 4. Soft, tenderness to palpation left mid abdomen, extending to the left lateral flank. No CVA TTP. MUSCULOSKELETAL: No muscle atrophy, erythema, or edema noted. Normal gait. Strength 5/5 throughout. NEURO: Patient was alert and oriented to person place and time. No focal neurological deficits. DIFFERENTIAL DIAGNOSIS: infections, diverticulitis, UTI, obstruction, mesenteric ischemia, aortic pathology, inflammatory bowel disease, renal colic, PUD, pancreatitis, biliary pathology, hernia, volvulus, constipation, as well as other pathologies. ED COURSE AND MEDICAL DECISION MAKING: HISTORY FROM INDEPENDENT HISTORIAN: at bedside serving as secondary historian. MEDICATIONS GIVEN: 1 L NSS bolus, 4 mg IV Zofran, 15 mg IV Toradol INTERPRETATION OF LABS: I interpreted the labs with full lab results as below in the lab section of this note. Pertinent lab results discussed in the MDM section below. INTERPRETATION OF IMAGING: Imaging studies were interpreted by myself and read by radiology as per the imaging section of this note. CONSULTATIONS: BE Mensah, urology MDM SUMMARY: The patient is a pleasant, 45-year-old female who arrives to the emergency department for evaluation of the above-stated complaint. Patient arrived during time of high acuity, and high-volume. Saline lock was established, with lab work obtained in triage. CBC shows no leukocytosis, no anemia. CMP is unremarkable, no HUMA. Urinalysis 3+ blood, 1+ leukocyte esterase, 1+ bacteria, negative nitrites, negative WBCs. CT imaging of the abdomen and pelvis with IV contrast was obtained which shows a 7 mm left UVJ stone, with mild hydronephrosis. I contacted BE Mensah from urology, who stated the patient may be admitted to medicine, for placement of a stent. The patient was provided IV fluids, IV Zofran, and IV Toradol with pain control noted upon reevaluation. Patient was admitted to the [facility] hospitalist, Dr. Vaughn, for medical management. Please refer to his documentation for further patient workup and care. DIAGNOSIS: UVJ stone, hydronephrosis The chart was completed utilizing [employer] Speech voice recognition software. Grammatical errors, random word insertions, pronoun errors, and incomplete sentences are an occasional consequence of this system due to software limitations, ambient noise, and hardware issues. Any formal questions or concerns about the content, text, or information contained within the body of this dictation should be directly addressed to the provider for clarification. Past Med/Surg History Problem List (Updated 04/17/25 @ 17:25 by BE Louis) Hydronephrosis (Acute) Renal colic Ureteropelvic junction calculus (Acute) Burn Vitamin D deficiency Acute UTI Stress incontinence Syncope Right lower quadrant pain Encounter for pre-operative examination Dyshidrotic eczema B/L hands Nephrolithiasis (Acute) Ureteral stone with hydronephrosis (Acute) Medical History Morbid obesity Hx of endometriosis Anxiety and depression Migraine Hypertension Kidney stones Surgical History S/P cystoscopy with ureteral stent placement (01/14/25) right side, w/laser lithotripsy and stone basketing History of lithotripsy History of appendectomy History of tooth extraction History of partial hysterectomy History of colonoscopy S/P hemorrhoidectomy History of section x 1 History of laparoscopy endometriosis Family History Mother Hypertension Other No family history of adverse response to anesthesia Social History Smoking Status: Unknown if ever smoked Second Hand Exposure: Yes (hx years ago); Do You Dip or Chew Tobacco: No; Tobacco Cessation Education Requested by Patient: No Hx Alcohol Use: Yes Alcohol type: beer, wine and hard liquor Hx Substance Use: Yes Last Used Substance Other:: tried using medical marijuana 2020 Preferred Language: Bahraini Communication Ability: Effective Visual Impairment: No Limitations Practical Nurse Required: No Beliefs That Will Affect Care: None marital status: Single Current Living Situation: Family Current Living Situation Comment: Lives with Son and Parents. Other Information That Helps Us Care for You: No Feels Safe at Home: Yes Safety Concerns: Feels Safe At This Time Assistive Devices: None Allergies Allergies Allergy/AdvReac Type Severity Reaction Status Date / Time allopurinol AdvReac Severe Nausea Verified 04/15/25 08:36 Home Meds Home Medications Medication Instructions Recorded Confirmed escitalopram oxalate 20 mg tablet 20 mg PO QAM 03/13/19 04/17/25 (Lexapro) ibuprofen 800 mg tablet 800 mg PO TID PRN Pain 12/01/21 04/17/25 losartan 50 mg-hydrochlorothiazide 1 tab PO QAM 06/06/22 04/17/25 12.5 mg tablet aripiprazole 2 mg tablet 2 mg PO HS 10/14/24 04/17/25 oxybutynin chloride 5 mg 0 mg PO HS 04/15/25 04/17/25 tablet,extended release 24 hr levocetirizine 5 mg tablet 5 mg PO HS 04/17/25 04/17/25 Previous Rx's Medication Instructions Recorded ondansetron 4 mg disintegrating 4 mg PO Q6H PRN nausea and 10/09/24 tablet vomiting #14 tabs Results & Data (ED) Vital Signs Vital Signs - 24 hr 04/17/25 09:28 Temperature 36.7 C Temperature Source Temporal Artery Scan Pulse Rate 60 Respiratory Rate 20 Respiratory Effort / Characteristics Non-Labored Spontaneous Respiratory Depth Normal Blood Pressure 174/104 H Blood Pressure Mean 127 Pulse Oximetry 98 Oxygen Delivery Method Room Air Sepsis Recent Fever Within 48 Hours No Sepsis New/Unexplained Change in Mental Status No Sepsis Action Taken by Nursing No Action Required Home Medications Current Medication List: was personally reviewed by me Laboratory Data Attestation: I reviewed the patient's lab results. 04/17/25 11:09 04/17/25 11:09 Lab Results 04/17/25 04/17/25 Range/Units 11:09 11:15 WBC 7.15 (4.8-10.8) K/ul RBC 4.91 (4.20-5.40) M/uL Hgb 14.2 (12.0-16.0) g/dl Hct 42.3 (37.0-47.0) % MCV 86.2 (80.0-100.0) fL MCH 28.9 (25.0-34.0) pg MCHC 33.6 (32.0-36.0) g/dL RDW Std Deviation 39.9 (36.4-46.3) fL RDW Coeff of Bibi 12.8 (11.5-14.5) % Plt Count 363 (130-400) K/uL MPV 9.2 L (9.4-12.4) fL Immature Gran % (Auto) 0.1 % Neut % (Auto) 77.9 % Lymph % (Auto) 16.9 % [place] % (Auto) 3.9 % Eos % (Auto) 0.6 % Baso % (Auto) 0.6 % Neut # (Auto) 5.57 (1.40-6.50) K/uL Lymph # (Auto) 1.21 (1.20-3.40) K/uL [place] # (Auto) 0.28 (0.11-0.59) K/uL Eos # (Auto) 0.04 (0.00-0.50) K/uL Baso # (Auto) 0.04 (0.00-0.20) K/uL Immature Gran # (Auto) 0.01 (0.01-0.20) K/uL Sodium 138 (136-145) mmol/L Potassium 3.7 (3.5-5.1) mmol/L Chloride 103 (98-107) mmol/L Carbon Dioxide 25 (21-32) mmol/L Anion Gap 10 (3-11) BUN 21 (6-23) mg/dl Creatinine 0.73 (0.6-1.2) mg/dl Est Cr Clr Drug Dosing 108.3 ml/min eGFR 103.29 BUN/Creatinine Ratio 28.8 H (10-20) Glucose 158 H (70-99(Fasting)) mg/dl Calcium 9.6 (8.6-10.3) mg/dl Total Bilirubin 0.4 (0.2-1.0) mg/dl AST 38 (13-39) U/L ALT 57 H (7-52) U/L Alkaline Phosphatase 88 (34-104) U/L Total Protein 8.0 (6.0-8.3) gm/dl Albumin 4.2 (3.4-5.0) gm/dl Globulin 3.8 (2.5-4.0) gm/dl Albumin/Globulin Ratio 1.1 (0.9-2) Urine Color Fults Urine Appearance Turbid A (Clear) Urine pH 5.5 (4.5-7.5) Ur Specific [place] 1.022 (1.000-1.030) Urine Protein 2+ H (Negative) Urine Glucose (UA) Negative (Negative) Urine Ketones Trace H (Negative) Urine Blood 3+ H (Negative) Urine Nitrite Negative (Negative) Urine Bilirubin Negative (Negative) Urine Urobilinogen Negative (Negative) Ur Leukocyte Esterase 1+ H (Negative) Urine WBC (Auto) 0-5 (0-5) /hpf Urine RBC (Auto) >20 H (0-2) /hpf U Hyaline Cast (Auto) 6-10 H (0-2) /lpf U Epithel Cells (Auto) 6-10 H (0-2) /hpf Urine Bacteria (Auto) 1+ H (None Seen) Urine Test Negative (Negative) Urine Comment Administered Medications Discontinued Medications Sodium Chloride (Nss) 1,000 mls @ 999 mls/hr IV .Q1H1M ONE Stop: 04/17/25 11:54 Last Infusion: 04/17/25 12:25 Dose: Infused Documented By: Admin: 04/17/25 11:09 Dose: 999 mls/hr Documented By: SADIQ Cefazolin Sodium (Ancef 2000mg) 2,000 mg in 15 mls @ 3.75 mls/min IV PREOP ONE; Protocol Stop: 04/17/25 16:03 Last Admin: 04/17/25 15:59 Dose: 3.75 mls/min Documented By: IRENE Ioversol (Optiray 320 100ml) 94 ml IV ONCE ONE Stop: 04/17/25 12:34 Last Admin: 04/17/25 12:33 Dose: 94 ml Documented By: CHETNA Ketorolac Tromethamine (Ketorolac Tromethamine 15 Mg/Ml Vial) 15 mg IV NOW ONE Stop: 04/17/25 10:55 Last Admin: 04/17/25 11:09 Dose: 15 mg Documented By: SADIQ Ondansetron HCl (Ondansetron Inj 2 Mg/Ml 2 Ml Vial) 4 mg IV NOW STA Stop: 04/17/25 10:55 Last Admin: 04/17/25 11:09 Dose: 4 mg Documented By: SADIQ Imaging Data Attestation: I personally reviewed and interpreted this imaging study as follows: Radiologist's Impression: Abdomen/Pelvis CT 04/17/25 10:54 CT SCAN OF THE ABDOMEN AND PELVIS WITH IV CONTRAST CLINICAL HISTORY: Left flank pain. COMPARISON STUDY: CT of the abdomen and pelvis October 09, 2024. Renal ultrasound April 13, 2025. TECHNIQUE: Following the IV administration of 94 cc of Optiray 320, CT scan of the abdomen and pelvis is performed from the lung bases to the proximal femora. Images are reviewed in the axial, sagittal, and coronal planes. IV contrast was administered without complication. A dose lowering technique was utilized adhering to the principles of ALARA. CT DOSE: 1394.82 mGy.cm FINDINGS: Visualized lung bases are unremarkable. There is no pneumatosis, free air or portal venous gas. A 7 mm left ureteropelvic junction calculus results in mild left hydronephrosis with slightly delayed left nephrogram. A few left renal calculi measure up to 5 mm. No right renal calculi are present. Bilateral renal calculus burden has significantly decreased since CT of October 09, 2024. Hypodense left renal lesion favors a cyst. There is hepatic steatosis. Spleen, adrenal glands and pancreas are unremarkable. The appendix is surgically absent. There is no evidence for a bowel obstruction. There is no lymphadenopathy. IMPRESSION: 1. 7 mm ureteropelvic junction calculus results in mild left hydronephrosis with slightly delayed nephrogram. 2. Left nephrolithiasis. Significant interval decrease in calculus burden since CT of October 09, 2024. ACT 112: Negative or not required by law. Electronically signed by: Vinod Garcia M.D. 04/17/2025 12:50 PM Discharge Plan Visit Data Chief Complaint: Kidney Stone Stated Complaint: KIDNEY STONE ED Provider: Mari Corral ED Midlevel Provider: Shanon Kiser Discharge Problem: Ureteropelvic junction calculus, Hydronephrosis Patient Disposition: Admitted As Inpatient Condition: Good Discharge Instructions Interventions: ED Discharge Assessment Last Done: 04/17/25 15:36
[2025-04-17] MEDS: ONDANSETRON INJ 2 MG/ML 2 ML VIAL IV STA (11:09)
[2025-04-17] MEDS: KETOROLAC TROMETHAMINE 15 MG/ML VIAL IV ONE (11:09)
[2025-04-17] MEDS: SODIUM CHLORIDE 0.9% 1,000 ML IV ONE (11:09)
[2025-04-17 11:39] LABS: Appearance Urine Turbid (Clear); Bacteria Urine Automated 1+ (None Seen); Glucose Urine UA Negative (Negative); RBC Urine Automated >20 /hpf (0-2); WBC Urine Automated 0-5 /hpf (0-5)
[2025-04-17 11:40] LABS: Hematocrit (blood only) 42.3 % (37.0-47.0); Hemoglobin 14.2 g/dl (12.0-16.0); Immature Granulocytes # (auto) 0.01 K/uL (0.01-0.20); Immature Granulocytes % (auto) 0.1 %; Mean Corpuscular Hemoglobin 28.9 pg (25.0-34.0); Mean Corpuscular Volume 86.2 fL (80.0-100.0); Platelet Count 363 K/uL (130-400); RDW Standard Deviation 39.9 fL (36.4-46.3); Red Blood Count 4.91 M/uL (4.20-5.40); White Blood Count 7.15 K/ul (4.8-10.8)
[2025-04-17 11:59] LABS: Alanine Aminotransferase 57.0 U/L (7-52); Albumin Globulin Ratio 1.1 (0.9-2); Alkaline Phosphatase 88.0 U/L (34-104); Anion Gap 10.0 (3-11); Bilirubin,Total 0.4 mg/dl (0.2-1.0); Blood Urea Nitrogen 21.0 mg/dl (6-23); Calcium 9.6 mg/dl (8.6-10.3); Carbon Dioxide 25.0 mmol/L (21-32); Chloride 103.0 mmol/L (98-107); Creatinine Clr Calc Pharmacy 108.3 ml/min; Globulin 3.8 gm/dl (2.5-4.0); Glucose 158.0 mg/dl (70-99(Fasting)); Potassium 3.7 mmol/L (3.5-5.1); Sodium 138.0 mmol/L (136-145); Total Protein 8.0 gm/dl (6.0-8.3)
[2025-04-17] MEDS: OPTIRAY 320 100ml IV ONE (12:33)
--- NOTE | 2025-04-17 12:52 | CT Scan Report ---
CT SCAN OF THE ABDOMEN AND PELVIS WITH IV CONTRAST CLINICAL HISTORY: Left flank pain. COMPARISON STUDY: CT of the abdomen and pelvis October 09, 2024. Renal ultrasound April 13, 2025. TECHNIQUE: Following the IV administration of 94 cc of Optiray 320, CT scan of the abdomen and pelvi s is performed from the lung bases to the proximal femora. Images are reviewed in the axial, sagittal , and coronal planes. IV contrast was administered without complication. A dose lowering technique wa s utilized adhering to the principles of ALARA. CT DOSE: 1394.82 mGy.cm FINDINGS: Visualized lung bases are unremarkable. There is no pneumatosis, free air or portal venous gas. A 7 mm left ureteropelvic junction calculus results in mild left hydronephrosis with slightly de layed left nephrogram. A few left renal calculi measure up to 5 mm. No right renal calculi are presen t. Bilateral renal calculus burden has significantly decreased since CT of October 09, 2024. Hypodense left renal lesion favors a cyst. There is hepatic steatosis. Spleen, adrenal glands and pancreas are unremarkable. The appendix is surgically absent. There is no evidence for a bowel obstruction. There is no lymphadenopathy. IMPRESSION: 1. 7 mm ureteropelvic junction calculus results in mild left hydronephrosis with slightly delayed nep hrogram. 2. Left nephrolithiasis. Significant interval decrease in calculus burden since CT of October 09, 2024. ACT 112: Negative or not required by law. Electronically signed by: Vinod Garcia M.D. 04/17/2025 12:50 PM
--- NOTE | 2025-04-17 14:25 | History & Physical Report ---
Date of Service April 17, 2025 Assessment & Plan (1) Ureteropelvic junction calculus: (2) Kidney stones: Plan Sofi is a 45yo lady with PMH of nephrolithiasis who is here for worsening back pain that radiates to her abdomen associated with nausea and vomiting. CT imaging shows UPJ calculus with left hydronephrosis and she is being managed for the obstructing stone and plan for cystoscopy and stent placement on 04/17. Pertinent Imagin mm ureteropelvic junction calculus results in mild left hydronephrosis with slightly delayed nephrogram. Left nephrolithiasis. Significant interval decrease in calculus burden since CT of October 09, 2024. Pertinent Labs: Urinalysis showed 3+ blood, 1+ LE, 1+ bacteria, negative nitrite. Urine culture 04/13 showed more than 3 times in organisms, low counts. #Left Ureteropelvic Junction Calculus #Nephrolithiasis #Left Mild Hydronephrosis -admit for stent placement -antibiotic coverage per urology -Ketorlac 15mg prn -consider morphine prn -possible d/c later Dispo: med/surg Diet: NPO for surgery DVT prophylaxis: hold chemoprophylaxis due to surgery Code: Full Code History of Present Illness Primary Care Provider: Jeremias Astridsky Sofi is a 45yo lady with PMH of kidney stones here for worsening back pain since this morning. She was apparently well until this morning when she developed sharp, intermittent, 10/10 left-sided back pain that radiated to her whole abdomen associated with nausea and nonbilious, nonbloody vomiting and chills which prompted her to come to the ED. She is scheduled for lithotripsy on 04/22/25 due to left sided renal stone burden previously documented on imaging. CT of abdomen and pelvis today showed 7 mm ureteropelvic junction calculus results in mild left hydronephrosis with slightly delayed nephrogram. The inpatient team was consulted for admission due to planned stent placement by urology this afternoon with lithotripsy still scheduled on 04/22. At bedside, pt is not experiencing any pain, nausea, or vomiting. She denies fever, CP, palpitations, SOB, or symptoms. ED course included IV fluids, Zofran, Toradol. Pain controlled with Toradol. Allergies Allergy/AdvReac Type Severity Reaction Status Date / Time allopurinol AdvReac Severe Nausea Verified 04/15/25 08:36 Home Medications Medication Instructions Recorded Confirmed Type escitalopram oxalate 20 mg tablet 20 mg PO QAM 03/13/19 04/17/25 History (Lexapro) ibuprofen 800 mg tablet 800 mg PO TID PRN Pain 12/01/21 04/17/25 History losartan 50 mg-hydrochlorothiazide 1 tab PO QAM 06/06/22 04/17/25 History 12.5 mg tablet ondansetron 4 mg disintegrating 4 mg PO Q6H PRN nausea and 10/09/24 04/17/25 Rx tablet vomiting #14 tabs aripiprazole 2 mg tablet 2 mg PO HS 10/14/24 04/17/25 History oxybutynin chloride 5 mg 0 mg PO HS 04/15/25 04/17/25 History tablet,extended release 24 hr levocetirizine 5 mg tablet 5 mg PO HS 04/17/25 04/17/25 History tamsulosin 0.4 mg capsule 0.4 mg PO HS #30 caps 04/17/25 Rx Past Med/Surg History Problem List (Updated 04/17/25 @ 17:25 by BE Louis) Hydronephrosis (Acute) Renal colic Ureteropelvic junction calculus (Acute) Burn Vitamin D deficiency Acute UTI Stress incontinence Syncope Right lower quadrant pain Encounter for pre-operative examination Dyshidrotic eczema B/L hands Nephrolithiasis (Acute) Ureteral stone with hydronephrosis (Acute) Medical History Morbid obesity Hx of endometriosis Anxiety and depression Migraine Hypertension Kidney stones Surgical History S/P cystoscopy with ureteral stent placement (01/14/25) right side, w/laser lithotripsy and stone basketing History of lithotripsy History of appendectomy History of tooth extraction History of partial hysterectomy History of colonoscopy S/P hemorrhoidectomy History of section x 1 History of laparoscopy endometriosis Family History Mother Hypertension Other No family history of adverse response to anesthesia Social History Smoking Status: Unknown if ever smoked Second Hand Exposure: Yes (hx years ago); Do You Dip or Chew Tobacco: No; Tobacco Cessation Education Requested by Patient: No Hx Alcohol Use: Yes Alcohol type: beer, wine and hard liquor Hx Substance Use: Yes Last Used Substance Other:: tried using medical marijuana 2020 Preferred Language: German Communication Ability: Effective Visual Impairment: No Limitations Offset Platemaker Required: No Beliefs That Will Affect Care: None marital status: Single Current Living Situation: Family Current Living Situation Comment: Lives with Son and Parents. Other Information That Helps Us Care for You: No Feels Safe at Home: Yes Safety Concerns: Feels Safe At This Time Assistive Devices: None Review of Systems Review of Systems: per HPI Physical Exam Physical Exam: GA: well groomed, well nourished in no apparent distress. AAOx3 HEENT: head normocephalic, atraumatic. EOMI RESP: vesicular breath sounds b/l. No wheezes, rhonchi, or rales CARDIOVASCULAR: S1 and S2 heard. No murmurs, rubs, or gallops. Radial pulses 2+ b/l GI: Normoactive bowel sounds, no tenderness or masses felt to palpation MSK: no gross abnormalities or focal deficits, no CVA tenderness SKIN: warm, dry, no edema PSYCH: appropriate mood and affect NEURO: no focal deficits Results & Data Results & Data Vital Signs (Past 12 Hours) Vital Signs Temp Pulse Resp BP Pulse Ox O2 Del Method 04/17/25 09:28 36.7 C 60 20 174/104 H 98 Room Air Resident Activity Tracking Resident Involvement: Resident Care Provided Care Provided: Adult Hospital Medicine
--- NOTE | 2025-04-17 14:52 | Urology Consultation ---
Date of Consultation April 17, 2025 Assessment & Plan (1) Ureteropelvic junction calculus: (2) Renal colic: Plan 45yo F who was scheduled for elective left sided stone treatment on 04/22/2025. She developed severe pain earlier this morning and presented to the ED and found to have an obstructing stone. She is admitted for severe left flank pain and nausea secondary to an obstructing 7 mm left UPJ stone. We discussed acute stone management with cystoscopy and stent placement. Ureteral stents were discussed as well as postoperative issues and pain management. She is aware a second procedure will be needed for stone treatment. Risks and benefits were discussed. All questions were answered. Will proceed to the OR today for cystoscopy, left retrograde pyelogram, left ureteral stent placement. Risks and benefits to be reviewed with patient by Dr. Watson. Keep NPO. Will cover with Ancef preoperatively. Urology to follow. Supervising Physician Co-Signing Physician Notes Plan to go to the OR for cystoscopy and left stent placement. Will keep her scheduled outpatient stone treatment surgery next week. History of Present Illness History of Present Illness 45-year-old female who presented to the ED today with severe left flank pain and nausea vomiting. She was recently seen in the outpatient urology clinic and was scheduled for left-sided stone treatment on 04/22/2025. She developed severe pain this morning with associated nausea vomiting which prompted her arrival in the ED. CT abdomen pelvis was performed and showed a 7 mm left proximal stone with mild hydronephrosis. She is afebrile and hemodynamically stable. Labs show no leukocytosis and normal renal function. Urinalysis showed 3+ blood, 1+ LE, 1+ bacteria, negative nitrite. Urine culture 04/13 showed more than 3 times in organisms, low counts. ED course included IV fluids, Zofran, Toradol. She is admitted to medicine service for pain management. Patient was seen at bedside in the ED. She is awake and sitting in bedside chair. No acute distress. Had a small muffin around 6:30AM but vomited after. No fevers. Some chills. Pain is currently managed with medication. Allergies Allergy/AdvReac Type Severity Reaction Status Date / Time allopurinol AdvReac Severe Nausea Verified 04/15/25 08:36 Home Medications Medication Instructions Recorded Confirmed Type escitalopram oxalate 20 mg tablet 20 mg PO QAM 03/13/19 04/17/25 History (Lexapro) ibuprofen 800 mg tablet 800 mg PO TID PRN Pain 12/01/21 04/17/25 History losartan 50 mg-hydrochlorothiazide 1 tab PO QAM 06/06/22 04/17/25 History 12.5 mg tablet ondansetron 4 mg disintegrating 4 mg PO Q6H PRN nausea and 10/09/24 04/17/25 Rx tablet vomiting #14 tabs aripiprazole 2 mg tablet 2 mg PO HS 10/14/24 04/17/25 History oxybutynin chloride 5 mg 0 mg PO HS 04/15/25 04/17/25 History tablet,extended release 24 hr levocetirizine 5 mg tablet 5 mg PO HS 04/17/25 04/17/25 History Patient History Medical History Morbid obesity Hx of endometriosis Anxiety and depression Migraine Hypertension Kidney stones Surgical History S/P cystoscopy with ureteral stent placement (01/14/25) right side, w/laser lithotripsy and stone basketing History of lithotripsy History of appendectomy History of tooth extraction History of partial hysterectomy History of colonoscopy S/P hemorrhoidectomy History of section x 1 History of laparoscopy endometriosis Family History Mother Hypertension Other No family history of adverse response to anesthesia Social History Smoking Status: Unknown if ever smoked Second Hand Exposure: Yes (hx years ago); Do You Dip or Chew Tobacco: No; Tobacco Cessation Education Requested by Patient: No Hx Alcohol Use: Yes Alcohol type: beer, wine and hard liquor Hx Substance Use: Yes Last Used Substance Other:: tried using medical marijuana 2020 Preferred Language: Estonian Communication Ability: Effective Visual Impairment: No Limitations Tube Dispatcher Required: No Beliefs That Will Affect Care: None marital status: Single Current Living Situation: Family Current Living Situation Comment: Lives with Son and Parents. Other Information That Helps Us Care for You: No Feels Safe at Home: Yes Safety Concerns: Feels Safe At This Time Assistive Devices: None Review of Systems Review of Systems: All systems reviewed & are unremarkable except as noted in HPI & below Physical Exam Constitutional: no acute distress Respiratory: no respiratory distress and no labored breathing Skin: No visible rashes or lesions to exposed skin areas Neurologic: moves all extremities and awake Psychiatric: A+Ox3, euthymic affect Results & Data Vital Signs (Past 12 Hours) Vital Signs Temp Pulse Resp BP Pulse Ox O2 Del Method 04/17/25 09:28 36.7 C 60 20 174/104 H 98 Room Air PG Care Time/CCT Total # of Minutes Spent Total Time Spent with Patient: Total time spent is greater than 50% in coordination of care (as documented) at patient's floor/unit and/or counseling patient: Coding Level of Care Code 93546 IN/OBS CONSULT LVL 4,60M Diagnoses Ureteropelvic junction calculus N20.1 Renal colic N23
--- NOTE | 2025-04-17 15:15 | Anesthesiology Consultation ---
Date of Service April 17, 2025 Assessment & Plan (1) Encounter for pre-operative examination: Chart Review Chart Review: Acceptable Risk for Surgery and Patient NOT seen in Pre Admission Testing Consults Requested none History Surgery Operation Date: 04/17/25 11:30 Proposed Procedures p Cystoscopy, Left Retrograde Pyelogram, Left Stent Placement - Robb Watson MD Height/Weight Height: 5 ft 2 in Weight: 101 kg Allergies Allergy/AdvReac Type Severity Reaction Status Date / Time allopurinol AdvReac Severe Nausea Verified 04/15/25 08:36 Medications Home Medications Medication Instructions Recorded Confirmed Last Taken escitalopram oxalate 20 mg tablet 20 mg PO QAM 03/13/19 04/17/25 01/13/25 07:00 (Lexapro) ibuprofen 800 mg tablet 800 mg PO TID PRN Pain 12/01/21 04/17/25 Unknown losartan 50 mg-hydrochlorothiazide 1 tab PO QAM 06/06/22 04/17/25 01/13/25 07:00 12.5 mg tablet ondansetron 4 mg disintegrating 4 mg PO Q6H PRN nausea and 10/09/24 04/17/25 Unknown tablet vomiting #14 tabs aripiprazole 2 mg tablet 2 mg PO HS 10/14/24 04/17/25 01/12/25 22:00 oxybutynin chloride 5 mg 0 mg PO HS 04/15/25 04/17/25 Unknown tablet,extended release 24 hr levocetirizine 5 mg tablet 5 mg PO HS 04/17/25 04/17/25 Unknown Past Medical History Medical History Morbid obesity Hx of endometriosis Anxiety and depression Migraine Hypertension Kidney stones Past Family History Family History Mother Hypertension Other No family history of adverse response to anesthesia Past Surgical History Surgical History S/P cystoscopy with ureteral stent placement (01/14/25) right side, w/laser lithotripsy and stone basketing History of lithotripsy History of appendectomy History of tooth extraction History of partial hysterectomy History of colonoscopy S/P hemorrhoidectomy History of section x 1 History of laparoscopy endometriosis Social History Smoking Status: Unknown if ever smoked Do You Dip or Chew Tobacco: No Hx Alcohol Use: Yes Alcohol type: beer, wine and hard liquor alcohol intake frequency: other Hx Substance Use: Yes substance use type: former substance user and marijuana Last Used Substance Other:: tried using medical marijuana 2020 Physical Exam Vital Signs Last Vital Signs Temp 37.0 C 04/17/25 14:39 Pulse 63 04/17/25 14:51 Resp 14 04/17/25 14:39 BP 121/81 04/17/25 14:39 Pulse Ox 95 04/17/25 14:39 O2 Del Method Room Air 04/17/25 14:39 Testing Laboratory Results 04/17/25 11:09 04/17/25 11:09 Urine Color [place] 04/17/25 11:15 Urine Appearance Turbid (Clear) A 04/17/25 11:15 Urine pH 5.5 (4.5-7.5) 04/17/25 11:15 Ur Specific [place] 1.022 (1.000-1.030) 04/17/25 11:15 Urine Protein 2+ (Negative) H 04/17/25 11:15 Urine Glucose (UA) Negative (Negative) 04/17/25 11:15 Urine Ketones Trace (Negative) H 04/17/25 11:15 Urine Nitrite Negative (Negative) 04/17/25 11:15 Ur Leukocyte Esterase 1+ (Negative) H 04/17/25 11:15 Urine WBC (Auto) 0-5 /hpf (0-5) 04/17/25 11:15 Urine RBC (Auto) >20 /hpf (0-2) H 04/17/25 11:15 U Hyaline Cast (Auto) 6-10 /lpf (0-2) H 04/17/25 11:15 U Epithel Cells (Auto) 6-10 /hpf (0-2) H 04/17/25 11:15 Urine Bacteria (Auto) 1+ (None Seen) H 04/17/25 11:15 Electrocardiogram Date: 01/14/25 DICTATED BY: Jose Ledezma MD Test Reason : Blood Pressure : */* mmHG Vent. Rate : 68 BPM Atrial Rate : 68 BPM P-R Int : 148 ms QRS Dur : 100 ms QT Int : 402 ms P-R-T Axes : 49 -17 38 degrees QTcB Int : 427 ms Normal sinus rhythm Incomplete right bundle branch block Borderline ECG When compared with ECG of 01-May-2022 13:15, Nonspecific T wave abnormality no longer evident in Anterior leads Confirmed by Jose Ledezma ([id number]) on 01/15/2025 3:59:41 AM
[2025-04-17] MEDS ORDERED: LIDOCAINE 2% 2 ML VIAL/AMP(20MG/ML) INFIL ONE (16:41)
[2025-04-17] MEDS ORDERED: ONDANSETRON INJ 2 MG/ML 2 ML VIAL ONE (16:41)
[2025-04-17] MEDS ORDERED: PROPOFOL IV EMULSION 10 MG/ML 20 ML VIAL IV ONE (16:41)
[2025-04-17] MEDS ORDERED: MIDAZOLAM HCL 1 MG/ML 2ML VIAL ONE (16:42)
[2025-04-17] MEDS ORDERED: ATROPINE SULFATE 0.1 MG/ML 10ML SYR IV PRN (17:06)
[2025-04-17] MEDS ORDERED: PROMETHAZINE HCL 6.25 MG in SODIUM CHLORIDE 0.9% 50 ML IV PRN (17:06)
[2025-04-17] MEDS ORDERED: ONDANSETRON INJ 2 MG/ML 2 ML VIAL IV PRN (17:06)
[2025-04-17] MEDS ORDERED: KETOROLAC 30 MG/ML VIAL ONE (17:18)
[2025-04-17] MEDS: DIATRIZOATE MEGLUMINE 30% 100ML VIAL INSTIL ONE (17:25)
--- NOTE | 2025-04-17 17:26 | Operative Report ---
PG Post Operative Report Pre & Post Diagnosis Operation Date: 04/17/25 11:30 Pre-Op Diagnosis: (1) Ureteropelvic junction calculus: (2) Renal colic: Post-Op Diagnosis: (1) Ureteropelvic junction calculus: (2) Renal colic: I identified the patient and participated in the time-out.: Yes Procedure Operation Date: 04/17/25 11:30 Actual Procedures p Cystoscopy, Left Retrograde Pyelogram with radiographic interpretation, Left ureteral Stent Placement(Not Applicable) - Robb Watson MD Surgeon Robb Watson MD Breaking Machine Operator None Estimated Blood Loss 0 Findings See Below Mild left hydro, stent in appropriate position Specimens None Drains 6 [place] by 24 cm left ureteral stent Anesthesia Type MAC Complications none Indications 45-year-old female with left proximal obstructing ureteral calculus who presents for stent placement due to intractable pain Description of Procedure After informed consent was obtained, the patient was transported operative suite. MAC anesthesia was induced. The patient was placed in dorsal lithotomy position prepped and draped in a sterile fashion. They received preoperative Ancef for antibiotic prophylaxis. An appropriate surgical timeout was performed. A 22 [place] rigid scope was inserted per urethra into the bladder. Bridges cystoscopy revealed no stones or lesions. I turned my attention the left ureteral orifice and intubated this with a 5 [place] open-ended catheter. A left retrograde pyelogram was shot which showed mild left hydro. A sensor wire was advanced into the kidney and confirmed fluoroscopically. A 6 [place] by 24 cm left ureteral stent was deployed with a good proximal coil in the renal pelvis and a good distal coil noted in the bladder. These were confirmed fluorosc opically and under direct visualization, respectively. The bladder was emptied and the scope was removed. This concluded the end of the case. All counts were correct at the end of the case. I was present, scrubbed, and actively participated for the entirety of the procedure. I attest to the content of the Intraoperative Record and any orders documented therein. Any exceptions are noted below.
--- NOTE | 2025-04-17 17:38 | Anesthesiology Progress Note ---
Date of Service April 17, 2025 Anesthesia Post Procedure Vital Signs Vital Signs: Temp Pulse Pulse Resp BP BP Pulse Ox 04/17/25 16:59 36.6 C 65 16 147/95 H 97 04/17/25 16:44 36.7 C 66 16 115/67 97 04/17/25 15:58 63 14 98/68 L 95 04/17/25 14:51 63 04/17/25 14:39 37.0 C 66 14 121/81 95 04/17/25 09:28 36.7 C 60 20 174/104 H 98 O2 Del Method 04/17/25 16:59 Room Air 04/17/25 16:44 Room Air 04/17/25 15:58 Room Air 04/17/25 14:51 04/17/25 14:39 Room Air 04/17/25 09:28 Room Air Transfer of Care Handoff Completed per policy Notes Mental Status: alert / awake / arousable and participated in evaluation Patient Amnestic to Procedure: Yes Nausea / Vomiting: adequately controlled Pain: adequately controlled Airway Patency, RR, SpO2: stable & adequate BP & HR: stable & adequate Hydration State: stable & adequate Anesthetic Complications: no major complications apparent and Pt Satisfied with anesthetic care
[2025-04-17] MEDS ORDERED: ACETAMINOPHEN 1000 MG/100 ML IV IV ONE (18:04)
[2025-04-17] MEDS: ACETAMINOPHEN 325 MG TAB PO STA (18:11)
--- NOTE | 2025-04-17 18:30 | Discharge Summary ---
Date of Service April 17, 2025 Admission HPI Per Admitting Provider Sofi is a 45yo lady with PMH of kidney stones here for worsening back pain since this morning. She was apparently well until this morning when she developed sharp, intermittent, 10/10 left-sided back pain that radiated to her whole abdomen associated with nausea and nonbilious, nonbloody vomiting and chills which prompted her to come to the ED. She is scheduled for lithotripsy on 04/22/25 due to left sided renal stone burden previously documented on imaging. CT of abdomen and pelvis today showed 7 mm ureteropelvic junction calculus results in mild left hydronephrosis with slightly delayed nephrogram. The i npatient team was consulted for admission due to planned stent placement by urology this afternoon with lithotripsy still scheduled on 04/22. At bedside, pt is not experiencing any pain, nausea, or vomiting. She denies fever, CP, palpitations, SOB, or symptoms. ED course included IV fluids, Zofran, Toradol. Pain controlled with Toradol. Admission Exam Per Admitting Provider GA: well groomed, well nourished in no apparent distress. AAOx3 HEENT: head normocephalic, atraumatic. EOMI RESP: vesicular breath sounds b/l. No wheezes, rhonchi, or rales CARDIOVASCULAR: S1 and S2 heard. No murmurs, rubs, or gallops. Radial pulses 2+ b/l GI: Normoactive bowel sounds, no tenderness or masses felt to palpation MSK: no gross abnormalities or focal deficits, no CVA tenderness SKIN: warm, dry, no edema PSYCH: appropriate mood and affect NEURO: no focal deficits Principal Diagnosis Left Ureteropelvic Junction Calculus Discharge Exam GA: well groomed, well nourished in no apparent distress. AAOx3 HEENT: head normocephalic, atraumatic. EOMI RESP: vesicular breath sounds b/l. No wheezes, rhonchi, or rales CARDIOVASCULAR: S1 and S2 heard. No murmurs, rubs, or gallops. Radial pulses 2+ b/l GI: Normoactive bowel sounds, no tenderness or masses felt to palpation MSK: no gross abnormalities or focal deficits, no CVA tenderness SKIN: warm, dry, no edema PSYCH: appropriate mood and affect NEURO: no focal deficits Discharge Data Allergies Allergy/AdvReac Type Severity Reaction Status Date / Time allopurinol AdvReac Severe Nausea Verified 04/15/25 08:36 Consultations 04/17/25 13:38 ED Decision to Admit Stat Procedures Performed Operation Date: 04/17/25 11:30 Actual Procedures p Cystoscopy, Left Retrograde Pyelogram, Left ureteral Stent Placement(Not Applicable) - Robb Watson MD Ordered Studies 04/17/25 10:54 CT abd pelvis IV con only Stat Hospital Course (1) Ureteropelvic junction calculus: (2) Kidney stones: Plan Sofi is a 45yo lady with PMH of nephrolithiasis who is here for worsening back pain that radiates to her abdomen associated with nausea and vomiting. CT imaging shows UPJ calculus with left hydronephrosis and she is being managed for the obstructing stone and plan for cystoscopy and stent placement on 04/17. Pertinent Imagin mm ureteropelvic junction calculus results in mild left hydronephrosis with slightly delayed nephrogram. Left nephrolithiasis. Significant interval decrease in calculus burden since CT of October 09, 2024. Pertinent Labs: Urinalysis showed 3+ blood, 1+ LE, 1+ bacteria, negative nitrite. Urine culture 04/13 showed more than 3 times in organisms, low counts. #Left Ureteropelvic Junction Calculus #Nephrolithiasis #Left Mild Hydronephrosis -tylenol 650mg prn -ibuprofen 600mg prn for breakthrough pain -rest as per surgery team -stable for d/c today Total Time Total Time Spent Total Time Spent (In Minutes): please see attending physician attestation Discharge Plan Discharge Items Patient Disposition: Home - Self-Care Reason For Visit: PUJ STONE Discharge Diagnosis: Kidney Stone Condition on Discharge: Good Activity: Resume your previous activity Non-emergency contact: Primary Care Provider and Urologist Call non-emergency contact if: your symptoms worsen, your pain is concerning for you and you have a fever Follow-up/Referrals: Jeremias Girard [Primary Care Provider] - Diet: Regular Addtl Attending Provider Instructions: Please keep your appointment for next week. We are starting your on tamsulosin, which should help relax your ureter so that you don't have much pain from the stents. For pain, You can try taking Tylenol over the counter for pain, and the ibuporfen for break through. Concern with Ibuprofen is that this may cause stomach bleeding, so goal would be to use it only if Tylenol is not enough. You may take 2 tablets of 325mg 4 times a day scheduled until your procedure if you have pain. Pending Studies at Discharge: No Stand-Alone Forms: My [facility] [place], Smoking Cessation Medications and DC Order Prescriptions: New tamsulosin 0.4 mg capsule 0.4 mg PO HS Qty: 30 0RF Continued escitalopram oxalate [Lexapro] 20 mg tablet 20 mg PO QAM losartan-hydrochlorothiazide 50-12.5 mg tablet 1 tab PO QAM aripiprazole 2 mg tablet 2 mg PO HS ibuprofen 800 mg tablet 800 mg PO TID PRN (Reason: Pain) ondansetron 4 mg tablet,disintegrating 4 mg PO Q6H PRN (Reason: nausea and vomiting) Qty: 14 0RF oxybutynin chloride 5 mg tablet extended release 24hr 0 mg PO HS Patient Comments: Unable to verify med at this date/time. Original Directions: 5mg by mouth once daily. 04/17/25 levocetirizine 5 mg tablet 5 mg PO HS Discharge Orders: Discharge Order (Routine); Ordered 04/17/25 Ordered By: Jhony Dangelo/Other Patient Handouts: DVT Post Op Prevention Admission Data Admit Date/Time: 04/17/25 14:13 Attending Provider: Jhony Vaughn Admit Provider: Tima Zavaleta Primary Care Provider: Jeremias Girard Other Providers: Jhony Vaughn Resident Activity Tracking Resident Involvement: Resident Care Provided Care Provided: Adult Hospital Medicine
[2025-04-17 18:38] VITALS: RESP 18; TEMP 98.2
[2025-04-17 19:32] VITALS: BP 133/89; PULSE 72; O2SAT 96
== END 2025-04-17 19:00 | disposition home or self-care (01) | DRG 661 ==
LOC: ED 09:11 → EDINP 14:13